=== PATIENT | male | born 1965 | race Caucasian/White ===

== ENCOUNTER → 2019-07-31 09:57 | Outpatient (CLI) | payer OTHER, SELFPAY ==
--- NOTE | ~2019-07-31 | XR_ITS ---
EXAMINATION: XR chest 2V 07/31/2019 10:11 INDICATION: Nicotine dependence PROCEDURE: 2 view chest COMPARISON: No prior studies for comparison. FINDINGS: The lungs are clear. The cardiomediastinal silhouette is within normal limits. There are no pleural effusions. There is no pneumothorax suspected. IMPRESSION: 1: NO ACUTE CARDIOPULMONARY DISEASE. Reviewed, dictated and finalized at location A.
== END ==
PROVIDERS: PCP Family Medicine; Visit Provider Family Medicine
DX: F17.200 Nicotine dependence, unspecified, uncomplicated (principal)
CPT/HCPCS: 71046

== ENCOUNTER 2019-08-09 00:27 | Outpatient (CLI) | payer OTHER, SELFPAY ==
[2019-08-09 16:19] LABS: SARS-CoV-2 RNA PCR Negative
== END 2019-08-09 00:28 | disposition home or self-care (01) ==
LOC: ANHCOVIDDT 00:27
PROVIDERS: PCP Family Medicine; Visit Provider Internal Medicine Gastroenterology
DX: Z12.11 Encounter for screening for malignant neoplasm of colon (principal); Z11.59 Encounter for screening for other viral diseases
CPT/HCPCS: 87635; C9803; U0003

== ENCOUNTER 2019-08-12 05:17 | Day surgery (SDC) | payer OTHER, SELFPAY ==
[2019-08-05 14:16] VITALS: BMI 30.7
--- NOTE | 2019-08-12 08:12 | P.PNAN_ITS ---
Anes - Initial Pre Proc Eval Procedure: Operation Date: 08/12/19 10:30 Proposed Procedures p Screening Colonoscopy - Braydon Ball MD Date/Time: 08/12/19 08:12 Surgeon: Braydon Ball MD Pre Op Diagnosis: Neoplasm Screening Patient Data Age: 53 Gender: M Height: 1.68 m Weight: 86.2 kg Allergies Allergy/AdvReac Type Severity Reaction Status Date / Time No Known Allergies Allergy Unverified 08/12/19 09:32 Home Medications Medication Instructions Recorded Confirmed Type ergocalciferol (vitamin D2) 2,000 unit PO DAILY 08/05/19 08/12/19 History peg 3350-electrolytes 236 240 ml PO Q10M #4000 ml 08/08/19 Rx gram-22.74 gram-6.74 gram-5.86 gram solution Patient hx anesthesia problems: none Family hx anesthesia problems: none PMFSH Past Medical History Medical History Bladder tumor Constipation Gross hematuria LLQ abdominal pain Obesity Smoker Social History Social History (Updated 07/29/19 @ 14:29 by Chon Torrez, [facility]) Smoking status: Current every day smoker Alcohol intake: never Anes - Eval Final PreProcedure Day of Procedure 08/12/19 08:12 Patient weight: obese Heart: regular rate and rhythm Lungs: clear to auscultation and normal air movement Airway: Mallampati scale class II Neurological: alert and oriented Last oral intake: >/= 8 hours ASA classification: III Emergent: no Anesthetic plan: proceed Anesthesia type and monitoring: general GIVS Informed Consent: The patient's anesthetic plan and its attendant risks and benefits were discussed with the patient/family/POA. Questions were solicited and answers provided to the satisfaction of the patient/family/POA.
[2019-08-12 09:25] VITALS: BP 173/100; PULSE 82; RESP 16; TEMP 37.2; O2SAT 98
[2019-08-12] MEDS: LACTATED RINGERS 1,000 ML 150 ML IV CONT (09:45)
--- NOTE | 2019-08-12 10:50 | WPDHPUPDATE1 ---
History and Physical Update Update Date/Time: 08/12/19 10:50 History and Physical has been reviewed, including an updated exam of the patient. There are NO changes in the patient's condition. Risks, benefits, and alternatives have been discussed and questions answered. Patient agrees to proceed with procedure.
--- NOTE | 2019-08-12 10:54 | SUR.OPER ---
1047 UPDATED FAMILY (RAMIREZ) PT TAKEN TO PROCEDURE ROOM
[2019-08-12 11:30] VITALS: BP 139/95; PULSE 76; RESP 18; O2SAT 99
[2019-08-12 11:40] VITALS: BP 156/102; PULSE 69; RESP 17; O2SAT 100
[2019-08-12 11:50] VITALS: BP 182/108; PULSE 65; RESP 22; O2SAT 100
== END 2019-08-12 12:00 | disposition home or self-care (01) ==
PROVIDERS: PCP Family Medicine; Visit Provider Internal Medicine Gastroenterology
PROC: 0DJD8ZZ Inspection of Lower Intestinal Tract, Via Natural or Artificial Opening Endoscopic (ICD-10-PCS; CPT 45378; principal; 2019-08-12 10:30)
DX: Z12.11 Encounter for screening for malignant neoplasm of colon (principal); D12.5 Benign neoplasm of sigmoid colon; D12.4 Benign neoplasm of descending colon; D12.3 Benign neoplasm of transverse colon; K63.5 Polyp of colon; K57.30 Diverticulosis of large intestine without perforation or abscess without bleeding; K64.8 Other hemorrhoids; E66.9 Obesity, unspecified; Z68.30 Body mass index [BMI] 30.0-30.9, adult
CPT/HCPCS: 45381; 45385; 87635; 88305; C9803; J2704; J7120; U0003

== ENCOUNTER 2019-08-12 08:59 | Outpatient (CLI) | payer OTHER, SELFPAY ==
[2019-08-12 09:26] LABS: Basophils Percent Auto 0.3 % (0.2-1.2); Eosinophils Absolute Auto 0.1 K/mm3 (0-0.3); Eosinophils Percent Auto 0.7 % (0-4.4); Hematocrit 45.9 % (42.0-52.0); Hemoglobin 15.7 g/dL (14.0-18.0); Immature Granulocyte Absolute 0.03 K/mm3 (0.00-0.031); Immature Granulocyte Percent A 0.3 % (0-0.5); Lymphocytes Absolute Auto 1.53 K/mm3 (0.9-3.2); Lymphocytes Percent Auto 16.7 % (18.3-44.2); Mean Corpuscular HGB Conc 34.2 g/dl (32-36); Mean Corpuscular Hemoglobin 29.5 pg (26-34); Mean Corpuscular Volume 86.3 fl (80-100); Mean Platelet Volume 9.3 fl (7.4-10.4); Monocytes Absolute Auto 0.7 K/mm3 (0.1-0.6); Monocytes Percent Auto 7.2 % (2.6-8.5); Neutrophils Absolute Auto 6.9 K/mm3 (1.3-6.7); Neutrophils Percent Auto 74.8 % (45.5-73.1); Platelet Count Result 340 k/mm3 (150-375); Red Blood Count 5.32 M/mm3 (4.6-6.20); Red Cell Distribution Width 12.7 % (11.5-14.5); White Blood Count 9.2 K/mm3 (4.5-10.0)
[2019-08-12 09:36] LABS: Prothrombin Time 13.1 Seconds (11.1-14.7)
[2019-08-12 09:37] LABS: Partial Thromboplastin Time 34.3 SECONDS (22.3-36.8)
[2019-08-12 09:40] LABS: Blood Urea Nitrogen 25 mg/dL (9-20); Calcium 9.5 mg/dL (8.4-10.2); Carbon Dioxide 26 mmol/L (22-30); Chloride 106 mmol/L (98-107); Estimated Glomerular Filt Rate > 60; Glucose 110 mg/dL (75-110); Potassium 3.9 mmol/L (3.4-5.0); Sodium 140 mmol/L (137-145)
== END 2019-08-12 09:00 | disposition home or self-care (01) ==
LOC: ANHSURGERY 09:02
PROVIDERS: PCP Family Medicine; Visit Provider Urology
DX: Z01.818 Encounter for other preprocedural examination (principal); R31.0 Gross hematuria
CPT/HCPCS: 36415; 80048; 85025; 85610; 85730; 87086

== ENCOUNTER 2019-08-13 07:24 | Outpatient (CLI) | payer OTHER, SELFPAY ==
--- NOTE | ~2019-08-13 | CT_ITS ---
EXAMINATION: CT abdomen pelvis wo/w con DATE: 08/13/2019 08:19 INDICATION: Bladder mass TECHNIQUE: Computed tomography (CT) of the abdomen and pelvis was performed without intravenous contr ast. CT of the abdomen and pelvis was then performed with a total of 130 mL Omnipaque 350 intravenous contrast using a double-bolus technique for simultaneous opacification of the renal parenchyma and r enal collecting system. The dose-length product (DLP) was 1497.37 mGy-cm. Automated exposure control and iterative reconstruction technique were employed. COMPARISON: None FINDINGS: The visualized lung bases are clear. The heart size is normal. The liver, spleen, pancreas, gallbladder, and adrenal glands are normal. There is crescentic irregular thickening of the left pos terolateral bladder wall which measures up to 1.7 cm in thickness. This involves the left ureteral or ifice and results in moderate left hydroureteronephrosis. The mass appears to extend to near the righ t ureteral orifice however a right ureteral jet is visualized. There is slightly decreased enhancemen t of the left kidney compared to the right, likely due to distal ureteral obstruction. Cysts of the l eft kidney measure up to 9 mm. There is a 2 mm nonobstructing stone of the right kidney lower pole. A 12 mm nonenhancing soft tissue density lesion of the right mid kidney has the appearance of a protei naceous cyst. There are pathologically enlarged retroperitoneal and bilateral external iliac chain ly mph nodes. The largest abnormal lymph node measures 2.1 x 1.8 cm on the right. A metallic density in the colon at the splenic flexure likely represents a clip from prior biopsy during colonoscopy. The a ppendix is normal. There is no free intraperitoneal gas or evidence of bowel obstruction. IMPRESSION: 1. Left posterolateral bladder wall mass, consistent with urothelial carcinoma. 2. Pelvic and retroperitoneal lymphadenopathy, consistent with metastatic disease. 3. Moderate left hydroureteronephrosis due to involvement of the left ureteral orifice by the bladder mass. Reviewed, dictated and finalized at location A. IMPRESSION: 1. Left posterolateral bladder wall mass, consistent with urothelial carcinoma. 2. Pelvic and retroperitoneal lymphadenopathy, consistent with metastatic disea se. 3. Moderate left hydroureteronephrosis due to involvement of the left ureteral orifice by the bladder mass.
== END 2019-08-13 07:25 | disposition home or self-care (01) ==
LOC: ANHIMG 07:31
PROVIDERS: PCP Family Medicine; Visit Provider Urology
DX: N32.89 Other specified disorders of bladder (principal)
CPT/HCPCS: 74178; Q9967

== ENCOUNTER 2019-08-16 04:19 | Outpatient (CLI) | payer OTHER, SELFPAY ==
[2019-08-16 18:08] LABS: SARS-CoV-2 RNA PCR Negative
== END 2019-08-16 04:20 | disposition home or self-care (01) ==
LOC: ANHCOVIDDT 04:19
PROVIDERS: PCP Family Medicine; Visit Provider Urology
DX: Z01.812 Encounter for preprocedural laboratory examination (principal); Z11.59 Encounter for screening for other viral diseases
CPT/HCPCS: 87635; C9803; U0003

== ENCOUNTER 2019-08-19 01:00 | Day surgery (SDC) | payer OTHER, SELFPAY ==
[2019-08-07 10:36] VITALS: BMI 30.7
[2019-08-19] VITALS (19 sets, daily range): BP systolic 153–211; BP diastolic 83–112; PULSE 73–104; RESP 16–29; TEMP 36.4–37; O2SAT 96–100
--- NOTE | ~2019-08-19 | XR_ITS ---
EXAMINATION: XR fluoroscopy no charge INDICATION: Bladder tumor TECHNIQUE: Two intraoperative fluoroscopic images are submitted for review. Fluoroscopy exposure time was 3.6 seconds. The DAP for this procedure was [id number] mGym2. COMPARISON: None available FINDINGS: Fluoroscopic images demonstrate surgical hardware projecting over the pelvis. Please refer to procedure note for full details. IMPRESSION: 1. Please refer to procedure note for full details. Reviewed, dictated and finalized at location A.
[2019-08-19] MEDS: LACTATED RINGERS 1,000 ML 30 ML IV CONT ×2 (10:50→13:27)
--- NOTE | 2019-08-19 11:07 | P.PNAN_ITS ---
Anes - Initial Pre Proc Eval Procedure: Operation Date: 08/19/19 12:30 Proposed Procedures p Trans Urethral Resection Bladder Tumor, Possible Retrograde Pyelogram Stent Placement - Albin Corey MD Date/Time: 08/19/19 11:07 Surgeon: Albin Corey MD Pre Op Diagnosis: bladder tumors Patient Data Age: 53 Gender: M Height: 5 ft 6 in Weight: 88.1 kg Allergies Allergy/AdvReac Type Severity Reaction Status Date / Time No Known Allergies Allergy Unverified 08/19/19 11:08 Home Medications Medication Instructions Recorded Confirmed Type ergocalciferol (vitamin D2) 2,000 unit PO DAILY 08/05/19 08/12/19 History Patient hx anesthesia problems: none Family hx anesthesia problems: none [facility] Past Medical History Medical History Bladder tumor Constipation Gross hematuria LLQ abdominal pain Obesity Smoker Social History Social History (Updated 07/29/19 @ 14:29 by Chon Torrez, [facility]) Smoking status: Current every day smoker Alcohol intake: never Anes - Eval Final PreProcedure Day of Procedure 08/19/19 11:07 Patient weight: obese Heart: regular rate and rhythm Lungs: clear to auscultation Airway: Mallampati scale class II Neurological: alert and oriented Last oral intake: >/= 8 hours ASA classification: III Emergent: no Anesthetic plan: proceed Anesthesia type and monitoring: general LMA and standard monitoring Informed Consent: The patient's anesthetic plan and its attendant risks and benefits were discussed with the patient/family/POA. Questions were solicited and answers provided to the satisfaction of the patient/family/POA.
--- NOTE | 2019-08-19 11:48 | WPDHPUPDATE1 ---
History and Physical Update Update Date/Time: 08/19/19 11:48 History and Physical has been reviewed, including an updated exam of the patient. There are NO changes in the patient's condition. Risks, benefits, and alternatives have been discussed and questions answered. Patient agrees to proceed with procedure.
[2019-08-19] MEDS: ceFAZolin 2 GM/D5W 50 ML 2 GM/50 ML BAG IVPB (12:30)
[2019-08-19] MEDS: LIDOCAINE HCL 2% GEL UROJET 10 ML PKG MUCOUS MEM (12:31)
--- NOTE | 2019-08-19 13:33 | P.OP_ITS ---
Procedure Note - Detailed Date of procedure: 08/19/19 Pre-op diagnosis: bladder tumors Post-op diagnosis: other (Large bladder tumor greater than 5 cm area. Involvement of prostatic urethra. Involvement of trigone) Procedure performed: Transurethral resection of a large bladder tumor area greater than 5 cm. Transurethral section of prostatic urethra Description of procedure: Patient was taken to the operative suite and correctly identified. Once anesthesia was obtained he was placed in the dorsal lithotomy position and prepped and draped in the usual sterile fashion. Twenty-four Palestinian scope was inserted in the bladder under direct vision. He has involvement of the prostatic urethra with papillary tumors. Upon entering the bladder and the bladder is also involved a significant area of tumor along the left lateral wall anterior wall floor and bladder neck area. The left ureteral orifice was never visualized nor was the right ureteral orifice. Went ahead and resected as much of the tumor as possible at this time in a safe manner. Bladder tumor along with the base as well as prostatic tissue was sent for analysis. A ladder of the tumor involved the left side of the prostatic urethra. This was also resected. Hemostasis was achieved using electrocautery. Hemostasis was adequate at termination of the procedure. 2% viscous lidocaine was inserted into the urethra. Twenty-four Palestinian [address] was placed with 20 cc i n the balloon and patient was taken recovery room in stable condition. He will be admitted for CBI. Anesthesia: GETA Surgeon: Albin Corey MD Drains: Yes Packing: No Pathology: yes Complications: No immediate complications Condition: stable Disposition: PACU
[2019-08-19] MEDS: MIDAZOLAM HCL 2 MG/2 ML VIAL 0.5 MG IV PUSH ×4 (13:57→14:51)
[2019-08-19] MEDS: hydrALAZINE HCL 20 MG/ML VIAL 10 MG IV PUSH ×3 (13:59→15:35)
--- NOTE | 2019-08-19 14:04 | SUR.PHASEI ---
1327; BP UPON ARRIVAL INTO PACU 198/101. ARMANDO ROJO AT BEDSIDE. 1340; PT AWAKE AND ALERT. VERY TENSE AND ANXIOUS. C/O URGE TO URINATE. EXPLAINED LOPEZ WITH CBI. 1349; PT CONTINUES TO BE EXTREMELY TENSE, BP REMAINS HIGH. 200/106. DR CHI NOTIFIED. ORDERS FOR HYDRALAZINE AND VERSED. ALSO TO CONTINUE WITH FENTANYL PRN
--- NOTE | 2019-08-19 14:28 | SUR.PHASEI ---
DR CHI AT BEDSIDE. PT REMAINS TENSE, AND C/O 10/10 URGE TO VOID. BP REMAINS 100S/100S. REPEAT HYDRALAZINE
--- NOTE | 2019-08-19 15:27 | SUR.PHASEI ---
DR CHI AT BEDSIDE. BP 199/95. ORDERED ANOTHER HYDRALAZINE 10MG IVP
[2019-08-19] MEDS: OXYBUTYNIN CHLORIDE 5 MG TABLET PO (15:30)
--- NOTE | 2019-08-19 16:27 | SUR.PHASEI ---
5465; DR CHI NOTIFIED OF BP 170-180 SYSTOLIC. MAY GO TO FLOOR
[2019-08-19] MEDS: HYOSCYAMINE SULFATE 0.125 MG TABLET SUBLINGUAL (17:09)
[2019-08-19] MEDS: DEXTROSE 5%/LACTATED RINGERS 1,000 ML 125 ML IV CONT (17:18)
[2019-08-19] MEDS: MORPHINE SULFATE 2 MG/ML INJ IV PUSH ×2 (17:43→20:14)
--- NOTE | 2019-08-19 18:16 | PC.NURSE ---
Returned from OR per [ STRETCHER LOPEZ DRAING CLEAR YELLOW URINE HAVING BLADDER SPASM, IV SITE CLEAN PATENT AND INFUSING WITHOT DIFFICULTY. ADMITTED FROM OR]
[2019-08-19] MEDS: DOCUSATE SODIUM 100 MG CAPSULE PO (20:48)
[2019-08-20] MEDS: MORPHINE SULFATE 2 MG/ML INJ IV PUSH ×3 (00:11→07:41)
[2019-08-20] MEDS: HYOSCYAMINE SULFATE 0.125 MG TABLET SUBLINGUAL ×2 (00:12→06:13)
[2019-08-20] MEDS: DEXTROSE 5%/LACTATED RINGERS 1,000 ML 125 ML IV CONT (01:18)
[2019-08-20 02:00] VITALS: BP 166/81; PULSE 74; RESP 18; TEMP 36.7; O2SAT 99
[2019-08-20 06:13] VITALS: BP 153/79; PULSE 69; RESP 18; TEMP 36.8; O2SAT 97
[2019-08-20 06:14] LABS: Hemoglobin 13.2 g/dL (14.0-18.0)
[2019-08-20 06:30] LABS: Blood Urea Nitrogen 20 mg/dL (9-20); Calcium 8.3 mg/dL (8.4-10.2); Carbon Dioxide 26 mmol/L (22-30); Chloride 104 mmol/L (98-107); Estimated CRCL calculation 61 ml/min; Estimated Glomerular Filt Rate 58; Glucose 102 mg/dL (75-110); Sodium 134 mmol/L (137-145)
--- NOTE | 2019-08-20 09:35 | WPDANESPN ---
Anes - Prog Note Post-Op Date/Time: 08/20/19 09:35 Cardiovascular status: normal Respiratory status: normal Airway patency: baseline Mental status: baseline Post-Op hydration status: normal Vital Signs: Last Vital Signs Temp 36.8 C 08/20/19 06:13 Pulse 69 08/20/19 06:13 Resp 18 08/20/19 06:13 BP 153/79 H 08/20/19 06:13 Pulse Ox 97 08/20/19 06:13 I/O: Intake & Output 08/19/19 08/20/19 08/20/19 23:59 07:59 15:59 Intake Total 450 1050 Output Total 400 Balance 450 650 Laboratory Tests 08/20/19 06:01 08/20/19 06:01 08/20/19 08/20/19 06:01 06:01 Hgb 13.2 L Hct 39.0 L Sodium 134 L Potassium 4.0 Chloride 104 Carbon Dioxide 26 BUN 20 Creatinine 1.30 Estim Creat Clear Calc 61 Estimated GFR 58 L Glucose 102 Calcium 8.3 L Post-procedural complaints: none Patient Feedback: Patient satisfied with anesthetic care.
[2019-08-20] MEDS: CEPHALEXIN 500 MG CAPSULE PO ×3 (09:37→16:47)
[2019-08-20] MEDS: DOCUSATE SODIUM 100 MG CAPSULE PO ×2 (09:37→16:47)
[2019-08-20 10:13] VITALS: BP 155/75; PULSE 71; RESP 18; TEMP 37; O2SAT 98
[2019-08-20 12:38] VITALS: BMI 31.8
[2019-08-20 14:13] VITALS: BP 150/72; PULSE 70; RESP 18; TEMP 36.6; O2SAT 100
--- NOTE | 2019-08-20 16:18 | WPDUROPN2 ---
Progress Note: A&P Assessment and Plan (1) Bladder tumor: Code(s): D49.4 - Neoplasm of unspecified behavior of bladder Status: Acute Assessment and Plan: Will plan to keep tonight, keep CBI running, wean to off when clear. Turn CBI off early am around 0600 and will re assess tomorrow. If clear ok to discharge home tomorrow with higuera until Sunday. (2) Gross hematuria: Code(s): R31.0 - Gross hematuria Status: Acute Subjective Subjective Date/Time Seen: 08/20/19 16:18 POD #1 TURBT Urine is still bloody off CBI with activity but improving slowly. Review of Systems Cardiovascular: Cardiovascular: Denies chest pain Respiratory: Respiratory: Reports no additional respiratory complaints Gastrointestinal: Gastrointestinal: Denies abdominal pain, Reports nausea and Denies vomiting Genitourinary: Genitourinary: Reports hematuria Exam Resp: Effort & Inspection: normal respiratory effort Cardio: Rate: regular rate GI: GI Palp: Yes Soft to palpation and No Tenderness to palpation present (GI) Urinary Catheter: Urinary Catheter: patent and draining and urine red Extrem: General: edema Objective Data Vital Signs Vital Signs: Vital Signs - 24 hr 08/19/19 16:28 08/19/19 16:43 08/19/19 17:13 Temperature 97.8 F 97.7 F 97.8 F Pulse Rate 104 H 100 98 Respiratory Rate 18 18 18 Blood Pressure 171/93 H 185/91 H 164/89 H Pulse Oximetry 99 100 100 08/19/19 18:13 08/19/19 19:57 08/19/19 22:00 Temperature 98.2 F 98.6 F Pulse Rate 97 97 86 Respiratory Rate 18 18 18 Blood Pressure 160/84 H 153/83 H Pulse Oximetry 100 100 99 08/20/19 02:00 08/20/19 06:13 08/20/19 10:13 Temperature 98.1 F 98.3 F 98.6 F Pulse Rate 74 69 71 Respiratory Rate 18 18 18 Blood Pressure 166/81 H 153/79 H 155/75 H Pulse Oximetry 99 97 98 08/20/19 14:13 Temperature 97.9 F Pulse Rate 70 Respiratory Rate 18 Blood Pressure 150/72 H Pulse Oximetry 100 Intake/Output Intake/Output: Intake & Output 08/17/19 08/18/19 08/19/19 08/20/19 23:59 23:59 23:59 23:59 Intake Total 500 1470 Output Total 6300 400 Balance -5800 1070 Meds/Results Medications: Active Medications Generic Name Dose Route Start Last Admin Trade Name Freq PRN Reason Stop Dose Admin Hydrocodone Bitart/Acetaminophen 1 tab 08/19/19 16:28 08/20/19 09:36 [place] 5-325 Mg PO 1 tab Q4H PRN Administration Pain Rated 1-6 Cephalexin HCl 500 mg 08/20/19 09:00 08/20/19 12:26 Keflex Capsule PO 500 mg QID ELIEL Administration Docusate Sodium 100 mg 08/19/19 17:00 08/20/19 09:37 Colace Capsule PO 100 mg BID ELIEL Administration Hyoscyamine 0.125 mg 08/19/19 16:28 08/20/19 06:13 Levsin Tablet SUBLINGUAL 0.125 mg Q6H PRN Administration Bladder Spasm Morphine Sulfate 2 mg 08/19/19 16:28 08/20/19 07:41 Morphine Sulfate Inj IV PUSH 2 mg Q2H PRN Administration Pain Rated 7-10 Naloxone HCl 0.1 mg 08/19/19 16:28 Narcan IV PUSH Q2M PRN Opiate Reversal Ondansetron HCl 4 mg 08/19/19 16:28 Zofran Inj IV PUSH Q12H PRN Nausea And Vomiting Radiology Results: ITS Impressions Fluoroscopy 08/19/19 22:54 IMPRESSION: 1. Please refer to procedure note for full details. Labs Labs: Laboratory Results - last 24 hr 08/20/19 08/20/19 06:01 06:01 Hgb 13.2 L Hct 39.0 L Sodium 134 L Potassium 4.0 Chloride 104 Carbon Dioxide 26 BUN 20 Creatinine 1.30 Estim Creat Clear Calc 61 Estimated GFR 58 L Glucose 102 Calcium 8.3 L
--- NOTE | 2019-08-21 12:10 | DS_ITS ---
DATE OF DISCHARGE: 08/20/2019 PREOPERATIVE DIAGNOSIS: Bladder tumor. POSTOPERATIVE DIAGNOSIS: Large bladder tumor greater than 5 cm area, involvement of prostatic urethra and mild involvement of trigone. HOSPITAL COURSE: The patient underwent transurethral resection of the large bladder tumor. He tolerated procedure well, went to recovery in stable condition and then to the floor for further observation. Overnight, the patient continued to have gross hematuria, which cleared with CBI. Following the procedure, the patient was discharged home on August 19 with activity, no straining. The patient should resume all home medications including hydrocodone and Keflex daily to prevent postop infection. He will keep catheter in until Sunday and will be removed in the office. The patient is to resume diet as tolerated. Tayler I MT: Ivan
== END 2019-08-20 17:15 | disposition home or self-care (01) ==
LOC: ANHSURGERY 10:22 → ANH3MEDSUR 19:52
PROVIDERS: PCP Family Medicine; Visit Provider Urology
PROC: 0TBB8ZZ Excision of Bladder, Via Natural or Artificial Opening Endoscopic (ICD-10-PCS; CPT 52240; principal; 2019-08-19 12:30)
DX: C67.8 Malignant neoplasm of overlapping sites of bladder (principal); F17.200 Nicotine dependence, unspecified, uncomplicated; E66.9 Obesity, unspecified; Z68.31 Body mass index [BMI] 31.0-31.9, adult
CPT/HCPCS: 52240; 36415; 80048; 85014; 85018; 88305; 88307; A9270; J0360; J0690; J1100; J2250; J2270; J2405; J2704; J3010; J7120; J7121

== ENCOUNTER 2019-08-22 21:59 | Emergency (ER) | payer OTHER, SELFPAY ==
[2019-08-22 22:08] VITALS: BP 164/87; PULSE 109; RESP 19; TEMP 36.9; O2SAT 100
--- NOTE | 2019-08-22 22:52 | ED.MALEGU ---
HPI - Male Genitourinary General Chief complaint: Urogenital-Male Stated complaint: urinary catheter issues Time Seen by Provider: 08/22/19 22:12 Source: patient Mode of arrival: ambulatory Limitations: no limitations History of Present Illness HPI Narrative: This patient is a 53 year old male who presents for evaluation of a possible higuera catheter issue. Patient had a transurethral bladder tumor resection performed by Dr. Corey on 08/19/19. This morning he states he developed episodes of penile pain and urge to urinate. He states he feels pressure to his penis and then he squeezes. He states once he squeezes his penis urine will come out around his catheter. OTherwise he states his catheter is draining well. He emptied his higuera bag 5 hours ago and he has 500 cc of urine in bag. He denies abdominal pain, nausea, vomiting or fever. Related Data Home Medications Medication Instructions Recorded Confirmed ergocalciferol (vitamin D2) 2,000 unit PO DAILY 08/05/19 08/19/19 Allergies Allergy/AdvReac Type Severity Reaction Status Date / Time No Known Allergies Allergy Unverified 08/19/19 11:08 Review of Systems Review of Systems: All systems reviewed & are unremarkable except as noted in HPI and below PMFSH Past Medical History Medical History Bladder tumor Constipation Gross hematuria LLQ abdominal pain Obesity Smoker Family History Family History (Updated 08/20/19 @ 12:39 by Megan Perez RN) Other No known health problems Social History Social History (Updated 07/29/19 @ 14:29 by Chon Torrez CMA) Smoking status: Current every day smoker Alcohol intake: never Gender identity (if verbalized by the patient): Male Exam Narrative: Exam Narrative: GENERAL: Well-appearing, well-nourished, and in no acute distress. HEAD: Normocephalic, atraumatic EYES: PERRLA and EOMI, conjunctiva clear without discharge THROAT:Mucous membranes moist NECK: Supple, without lymphadenopathy or mass RESPIRATORY: No respiratory distress, Airway patent, Respirations non-labored, Clear to auscultation without rales, rhonchi or wheeze HEART: Regular rate and rhythm. No murmur heard. Normal peripheral pulses. ABDOMEN: Soft, nontender, nondistended, normal active bowel sounds. No masses. No rebound or guarding, No organomegaly. EXTREMITIES: No edema, normal strength with full range of motion. SKIN: Warm, dry, normal color without rash NEURO: Alert and oriented x3. CN 2-12 grossly intact. No focal deficits. PSYCH: Normal mood and affect. : Penis: Yes circumcised Urinary Catheter: Urinary Catheter: patent and draining and other (urine dark yellow, no paige blood) Course Reevaluation(s) Reevaluation #1: PAtient states he was able to urinate and he has no pain or pressure. He was given return precautions. Date: 08/23/19 Time: 00:35 Consultations Consultation #1: I spoke with Dr. Jacobo of urology about patient post op. He recommends taking out higuear catheter and making sure patient can urinate. Date: 08/22/19 Time: 23:18 Vital Signs Vital signs: Vital Signs Temperature 98.4 F 08/22/19 22:08 Pulse Rate 109 H 08/22/19 22:08 Respiratory Rate 19 08/22/19 22:08 Blood Pressure 164/87 H 08/22/19 22:08 Pulse Oximetry 100 08/22/19 22:08 Temperature 97.4 F L 08/23/19 00:53 Pulse Rate 76 08/23/19 00:53 Respiratory Rate 16 08/23/19 00:53 Blood Pressure 154/69 H 08/23/19 00:53 Pulse Oximetry 98 08/23/19 00:53 MDM - Male Genitourinary Medical Records Attestation: I reviewed the patient's medical records. Lab Data Labs: Urine Characteristics Clear,Clots Discharge Plan Discharge Clinical Impression: Higuera catheter problem, Bladder spasms Patient Disposition: Home, Self-Care Condition: Stable Instructions: Antibiotic Form, Higuera Catheter Placement and Care (ED) Additional Instructions: Continue taking your antibioti
--- NOTE | 2019-08-23 00:01 | PC.NURSE ---
Per EDKassidy Gonzalez, remove indwelling catheter.
[2019-08-23 00:53] VITALS: BP 154/69; PULSE 76; RESP 16; TEMP 36.3; O2SAT 98
== END 2019-08-23 00:56 | disposition home or self-care (01) ==
PROVIDERS: Emergency Provider General Practice; PCP Family Medicine
DX: N32.89 Other specified disorders of bladder (principal); Z46.6 Encounter for fitting and adjustment of urinary device; E66.9 Obesity, unspecified; Z68.31 Body mass index [BMI] 31.0-31.9, adult; F17.200 Nicotine dependence, unspecified, uncomplicated
CPT/HCPCS: 99282

== ENCOUNTER 2019-09-06 18:49 | Emergency (ER) | payer OTHER, SELFPAY ==
[2019-09-06 19:04] VITALS: BP 172/115; PULSE 132; RESP 22; TEMP 37; O2SAT 98
[2019-09-06 19:19] LABS: Basophils Absolute Auto 0.1 K/mm3 (0.0-0.1); Basophils Percent Auto 0.4 % (0.2-1.2); Eosinophils Absolute Auto 0.2 K/mm3 (0-0.3); Eosinophils Percent Auto 1.5 % (0-4.4); Hematocrit 43.7 % (42.0-52.0); Hemoglobin 14.7 g/dL (14.0-18.0); Immature Granulocyte Absolute 0.21 K/mm3 (0.00-0.031); Immature Granulocyte Percent A 1.7 % (0-0.5); Lymphocytes Absolute Auto 1.76 K/mm3 (0.9-3.2); Lymphocytes Percent Auto 14.1 % (18.3-44.2); Mean Corpuscular HGB Conc 33.6 g/dl (32-36); Mean Corpuscular Volume 86.2 fl (80-100); Mean Platelet Volume 8.6 fl (7.4-10.4); Monocytes Percent Auto 8.2 % (2.6-8.5); Neutrophils Absolute Auto 9.3 K/mm3 (1.3-6.7); Neutrophils Percent Auto 74.1 % (45.5-73.1); Platelet Count Result 515 k/mm3 (150-375); Red Blood Count 5.07 M/mm3 (4.6-6.20); Red Cell Distribution Width 13.2 % (11.5-14.5); White Blood Count 12.5 K/mm3 (4.5-10.0)
[2019-09-06 19:41] LABS: Blood Urea Nitrogen 30 mg/dL (9-20); Calcium 9.3 mg/dL (8.4-10.2); Carbon Dioxide 22 mmol/L (22-30); Chloride 103 mmol/L (98-107); Estimated CRCL calculation 59 ml/min; Estimated Glomerular Filt Rate 58; Glucose 123 mg/dL (75-110); Sodium 136 mmol/L (137-145)
[2019-09-06 20:34] VITALS: BP 154/103; PULSE 101; RESP 15; TEMP 37.6; O2SAT 100
--- NOTE | 2019-09-06 21:33 | ED.LOWEXIN ---
HPI - Extremity Injury (Lower) General Chief Complaint: Extremity Injury, Lower Stated Complaint: ankle swelling Time Seen by Provider: 09/06/19 21:06 History of Present Illness HPI Narrative: Rash to the bilateral feet and legs for the past 4 days. Consists of painful scattered rash red patches. Worst on feet and ankles. He does report not feeling well for the pat few weeks. He has had a poor appetite and lack of energy. He did have a urological procedure 3 weeks ago. Related Data Home Medications Medication Instructions Recorded Confirmed ergocalciferol (vitamin D2) 2,000 unit PO DAILY 08/05/19 08/19/19 Allergies Allergy/AdvReac Type Severity Reaction Status Date / Time No Known Allergies Allergy Verified 09/06/19 19:05 Review of Systems Review of Systems: All systems reviewed & are unremarkable except as noted in HPI and below Constitutional: Constitutional: Denies chills and Denies fever(s) ENT: Denies sore throat Cardiovascular: Cardiovascular: Denies chest pain Respiratory: Respiratory: Denies dyspnea Gastrointestinal: Gastrointestinal: Denies abdominal pain Genitourinary: Genitourinary: Denies hematuria and Denies dysuria Musculoskeletal: Musculoskeletal: Denies back pain Integumentary/Breasts: Skin/Breast: Reports rash Neurologic: Denies numbness and Denies weakness PMFSH Past Medical History Medical History Bladder tumor Constipation Gross hematuria LLQ abdominal pain Obesity Smoker Family History Family History Other No known health problems Social History Social History Smoking status: Current every day smoker Alcohol intake: never Gender identity (if verbalized by the patient): Male Exam Const: General: healthy appearing, no acute distress and alert Orientation/consciousness: patient oriented x3 HENMT: Head: normal to inspection Neck: Neck: normal visual inspection and no lymphadenopathy Chest: Chest palpation & inspection: no tenderness Resp: Effort & Inspection: normal respiratory effort Auscultation: clear to auscultation bilaterally, no rales, no rhonchi and no wheezes Cardio: Jugular venous distension: no JVD Rate: regular rate Rhythm: regular rhythm Heart sounds: no murmurs GI: Inspection: non-distended GI Palp: Yes Soft to palpation and No Tenderness to palpation present (GI) Skin: Other: non-blanching petechial rash to the bilateral feet and ankles Neuro: General: patient oriented x3 and moves all extremities Speech: normal speech Extrem: General: no edema Psych: Appearance: well kempt Affect: normal affect Course Vital Signs Vital signs: Vital Signs Temperature 37.0 C 09/06/19 19:04 Pulse Rate 132 H 09/06/19 19:04 Respiratory Rate 22 H 09/06/19 19:04 Blood Pressure 172/115 H 09/06/19 19:04 Pulse Oximetry 98 09/06/19 19:04 Temperature 36.7 C 09/06/19 23:11 Pulse Rate 86 09/06/19 23:11 Respiratory Rate 18 09/06/19 23:11 Blood Pressure 179/103 H 09/06/19 23:11 Pulse Oximetry 98 09/06/19 23:11 MDM - Extremity Injury (Lower) MDM Narrative Medical decision making narrative: petechial rash could be vasculitis. UA concerning for UTI. Could be related. I do not want to start steroids while he is being treated for infection. Hopefully treatment of the UTI will lead to resolution of the rash as well. He will need close follow-up Medical Records Attestation: I reviewed the patient's medical records. Lab Data Attestation: I reviewed the patient's lab results. Result diagrams: 09/06/19 19:11 09/06/19 19:11 Labs: Lab Results 09/06/19 09/06/19 09/06/19 Range/Units 19:10 19:10 19:11 WBC 12.5 H (4.5-10.0) K/mm3 RBC 5.07 (4.6-6.20) M/mm3 Hgb 14.7 (14.0-18.0) g/dL Hct 43.7 (42.0-52.0) % MCV 86.2 (80-100) fl MCH 29.0 (26-34) pg
[2019-09-06 22:21] LABS: Erythrocyte Sedimentation Rate 20 mm/hr (0-20)
[2019-09-06 22:37] VITALS: BP 193/102; PULSE 69; RESP 19; O2SAT 98
[2019-09-06 22:48] LABS: Add Urine Microscopic? YES; Appearance Urine Clear (Clear); Bacteria Urine 1+ /hpf; Bilirubin Urine Negative (Negative); Blood Urine 2+ (Negative); Color Urine Yellow (Yellow); Glucose Urine UA Negative (Negative); Ketones Urine Negative (Negative); Leukocyte Esterase Ur 3+ LEU/UL (Negative); Nitrate Urine Negative (Negative); Protein Urine 1+ mg/dL (Negative); RBC Urine 21-50 /hpf (0-2); Specific Grav Ur 1.016 (1.001-1.035); Squamous Epithelial Cell Urine Rare /hpf (Few); Urobilinogen Urine Negative mg/dL (<2.0); WBC Urine >75 /hpf
[2019-09-06] MEDS: CEFDINIR 300 MG CAPSULE PO (23:09)
[2019-09-06] MEDS: diphenhydrAMINE HCl CAP 25 MG CAPSULE PO (23:09)
[2019-09-06 23:11] VITALS: BP 179/103; PULSE 86; RESP 18; TEMP 36.7; O2SAT 98
== END 2019-09-06 23:12 | disposition home or self-care (01) ==
PROVIDERS: Emergency Provider Emergency Medicine; PCP Family Medicine
DX: R23.3 Spontaneous ecchymoses (principal); E66.9 Obesity, unspecified; Z68.31 Body mass index [BMI] 31.0-31.9, adult; F17.200 Nicotine dependence, unspecified, uncomplicated; N39.0 Urinary tract infection, site not specified
CPT/HCPCS: 36415; 80048; 81001; 85025; 85652; 86140; 87086; 99283; A9270